=== PATIENT | male | born 1960 | race Two or more races ===

== ENCOUNTER 2019-09-04 14:16 | Emergency (ER) | payer OTHER ==
[~2019-09-04] VITALS: Ht 172.7 cm; Wt 81.6 kg
[~2019-09-04 14:16] MED LIST: BENADRYL50 MG ORAL; FLONASE1 SPRAYS; LORATADINE10 M2 PO; NKM; RANITIDINE HCL150 MG ORAL; UNOBMED
[2019-09-04 14:30] VITALS: BP 135/85
--- NOTE | 2019-09-04 15:28 | Diagnostic Imaging Report ---
Indication: Pain, status post fall Technique: 3 views of the left knee Comparison: None Findings: No suprapatellar effusion. No acute fractures. No dislocations. The joint spaces are preserved Impression: Negative
--- NOTE | 2019-09-04 15:28 | Diagnostic Imaging Report ---
Indications: Pain status post fall Technique: Three views of the right knee Comparison: None Findings: No acute fractures. No dislocations. Joint spaces are preserved. No radiopaque foreign body. Normal mineralization. Impression: No acute process
--- NOTE | 2019-09-04 15:29 | Diagnostic Imaging Report ---
Indication: Right hand pain, status post fall Technique: 3 views hand Comparison: none Findings: No acute fractures. No dislocations. The joint spaces are preserved. Impression: Negative
[2019-09-04] MEDS ORDERED: Acetaminophen 500mg (ES) tab ORAL ONE (16:00)
--- NOTE | 2019-09-04 16:08 | Emergency Room Report ---
History of Present Illness General Chief Complaint: Multiple Trauma/Fall Source: Patient Present Illness HPI 59-year-old male presents to the emergency department complaining of 6 out of 10 in severity pain to the anterior knees bilaterally, pain and swelling to the right hand and tightness in his upper back and neck status post allegedly mechanical slip and fall down stairs 2 days ago. Patient estimates slipping down approximately 13 stairs. He is also reporting abrasions and multiple sites including his face as well as contusions of multiple sites. Patient states he is ambulatory on his own. He denies having a loss of consciousness. Patient denies headache, nausea, vomiting, blurry vision, or pain with movements of the eyes. He denies taking blood thinning medications. Denies bleeding at this time. He denies midline neck or back pain. He denies difficulty with speech or memory. Denies numbness tingling or loss of sensation or gross motor movements of the extremities, incontinence of bowel or bladder. Denies CP, Palpitations, LOC, AMS, dizziness, Changes in Vision, weakness or a sudden severe headache. Allergies: Coded Allergies: AMOXICILLIN (Verified Allergy, Unknown, HIVES, 10/31/11) PENICILLIN (Verified Allergy, Unknown, 09/07/15) Patient History Past Medical History: see triage record, DM Past Surgical History: none Pertinent Family History: none Immunizations: UTD Reviewed Nursing Documentation: PMH: Agreed; PSxH: Agreed Nursing Documentation-PMH Past Medical History: No History, Except For Hx Hypertension: Yes Hx Diabetes: Yes Review of Systems All Other Systems: negative except mentioned in HPI Physical Exam Vital Signs Date Time Temp Pulse Resp B/P (MAP) Pulse Ox O2 Delivery O2 Flow Rate FiO2 09/04/19 14:25 98.8 88 16 135/85 (102) 95 Room Air Sp02 EP Interpretation: reviewed, normal General Appearance: no apparent distress, alert, GCS 15, non-toxic Head: normocephalic, other - on the left forearm and the right side of face: cheek, right eyebrow, and forehead. Contusions to the right side of the face/ eyebrow. Eyes: bilateral eye normal inspection, bilateral eye PERRL, bilateral eye EOMI ENT: hearing grossly normal, normal voice Neck: full range of motion, no bony tend, tender lateral Respiratory: chest non-tender, lungs clear, normal breath sounds, speaking full sentences Cardiovascular #1: regular rate, rhythm Gastrointestinal: non tender, soft Musculoskeletal: back normal, normal range of motion, non-tender, tender - Right side of his face/ cheek, eyebrow and forehead, right palm, and anterior knees bilaterally. no increased laxity of the knees. no obivous deformities, swelling - right side of the face, and the anterior aspect of the left knee. , other - compensatory gait favoring the left knee without assistance. Neurologic: alert, motor strength/tone normal, oriented x3, sensory intact, responsive, speech normal, normal inspection, other - able to answer questions appropriately with sufficient amount of detail without delay in response time or difficulty with word recall. Psychiatric: judgement/insight normal Skin: Ecchymosis/Bruising - right side of the face/ eyebrow, abrasion - abrasions: on the left forearm and the right side of face: cheek, right eyebrow , and forehead. Contusions on the right side of the face at the eyebrow, palmar aspect of the right hand and the anterior left knee Medical Decision Making PA Attestation Dr. Musa is my supervising Physician whom patient management has been discussed with. Diagnostic Impression: Primary Impression: Knee effusion, left Additional Impressions: Multiple contusions Facial abrasion Qualified Codes: S00.81XA - Abrasion of other part of head, initial encounter Facial contusion Qualified Codes: S00.83XA - Contusion of other part of head, initial encounter ER Course 59-year-old male presents to the emergency department complaining of 6 out of 10 in severity pain to the anterior knees bilaterally, pain and swelling to the right hand and tightness in his upper back and neck status post allegedly mechanical slip and fall down stairs 2 days ago. Patient estimates slipping down approximately 13 stairs. He is also reporting abrasions and multiple sites including his face as well as contusions of multiple sites. Patient states he is ambulatory on his own. He denies having a loss of consciousness. Patient denies headache, nausea, vomiting, blurry vision, or pain with movements of the eyes. He denies taking blood thinning medications. Denies bleeding at this time. He denies midline neck or back pain. He denies difficulty with speech or memory. Denies numbness tingling or loss of sensation or gross motor movements of the extremities, incontinence of bowel or bladder. Denies CP, Palpitations, LOC, AMS, dizziness, Changes in Vision, weakness or a sudden severe headache. Ddx considered but are not limited to Fracture, dislocation, contusion, Sprain/ Strain/Spasm, intracranial bleed, abrasions, lacerations or concussion just to name a few. Vital signs: are WNL, pt. is afebrile H&PE are most consistent with musculoskeletal injury will perform imaging to r/ o fractures/dislocations. abrasions: on the left forearm and the right side of face: cheek, right eyebrow , and forehead. Contusions on the right side of the face at the eyebrow, palmar aspect of the right hand and the anterior left knee. Swelling of the left knee. NO focal neurological Deficits, no Midline neck or back pain along spinous processes. FROM. ORDERS: - X-ray's - negative for fx, Dislocation, or significant soft tissue injury , per preliminary read in ED, and signed by BOBBY Sykes, my supervising physician has reviewed, and agrees with my interpretation. * Left knee effusion. ED INTERVENTIONS: - Tylenol 1G PO -Guru wrap applied to the left knee by civil engineering technician. Pt. remains neurovascularly intact. -Patient is provided with a cane and instructed on its use -I do not identify an emergent condition at this time. With current presentation , pt. is stable for close outpatient follow up and conservative treatment. D/ w pt. to return promptly to ED with worsening or new symptoms.- Pt. verbalizes' understanding and agreement with proposed treatment plan. DISCHARGE: At this time pt. is stable for d/c to home. Will provide printed patient care instructions, and any necessary prescriptions. Care plan and follow up instructions have been discussed with the patient prior to discharge. Other X-Ray Diagnostic Results Other X-Ray Diagnostic Results #1: X-Ray ordered: Right knee # of Views/Limited Vs Complete: 3 View Indication: Pain EP Interpretation: Yes BOBBY Xray: Interpretation reviewed, by supervising MD, and agrees with findings. Interpretation: no dislocation, no soft tissue swelling, no fractures Impression: No acute disease Electronically Signed by: Jovanna Sykes PA-C Other X-Ray Diagnostic Results #2: X-Ray ordered: Left knee # of Views/Limited Vs Complete: 3 View Indication: Pain EP Interpretation: Yes PA Xray: Interpretation reviewed, by supervising MD, and agrees with findings. Interpretation: no dislocation, no fractures, other - anterior effusion Impression: Other - effusion Electronically Signed by: Jovanna Sykes PA-C Other X-Ray Diagnostic Results #3: X-Ray ordered: Right Hand # of Views/Limited Vs Complete: 3 View Indication: Pain EP Interpretation: Yes PA Xray: Interpretation reviewed, by supervising MD, and agrees with findings. Interpretation: no dislocation, no soft tissue swelling, no fractures Impression: No acute disease Electronically Signed by: Jovanna Sykes PA-C Last Vital Signs Date Time Temp Pulse Resp B/P (MAP) Pulse Ox O2 Delivery O2 Flow Rate FiO2 09/04/19 14:25 98.8 88 16 135/85 (102) 95 Room Air Disposition: HOME, SELF-CARE Condition: Stable Scripts Methocarbamol* (ROBAXIN-750*) 750 Mg Tablet 750 MG PO QID, #28 TAB 0 Refills Prov: Jovanna Sykes 09/04/19 Allantoin/Onion/Peg/Water (MEDERMA GEL) 20 Gm Gel..gram. 1 APPLIC TP Q6HR, #20 GM Prov: Jovanna Sykes 09/04/19 Bacitracin/Polymyxin B Sulfate (BACITRACIN-POLYMYXIN OINTMENT) 28.35 Gm Oint...g. 1 APPLIC TP BID, #28.3 GM Prov: Jovanna Sykes 09/04/19 Acetaminophen* (TYLENOL EXTRA STRENGTH*) 500 Mg Tablet 500 MG ORAL Q6H, #30 TAB 0 Refills Prov: Jovanna Sykes 09/04/19 Patient Instructions: Abrasion, [id number], Contusion, [id number], Facial or Scalp Contusion, [id number] Additional Instructions: Take medications as directed. --Do not drink alcohol, drive, or operate heavy machinery while taking Robaxin as this may cause drowsiness. Follow up with a Primary Care Provider in 3-5 days, even if your symptoms have resolved. --Please review list of primary care clinics, if you do not already have a primary care provider Return sooner to ED if new symptoms occur, or current symptoms become worse. - Please note that this Emergency Department Report was dictated using [employer] technology software, occasionally this can lead to erroneous entry secondary to interpretation by the dictation equipment. Jovanna Sykes Sep 04, 2019 16:08
[2019-09-04] MEDS ORDERED: ROBAXIN-750750 MG PO (16:11)
[2019-09-04] MEDS ORDERED: BACITRACIN-P28.35 GM TP (16:11)
[2019-09-04] MEDS ORDERED: TYLENOL EXTRA500 MG ORAL (16:11)
[2019-09-04] MEDS ORDERED: MEDERMA GEL20 GM TP (16:11)
[2019-09-04 16:58] VITALS: BP 130/85
== END 2019-09-04 16:58 | disposition home or self-care (01) ==
LOC: EMR 16:08
DX: M25.462 Effusion, left knee (principal); S00.81XA Abrasion of other part of head, initial encounter; S00.83XA Contusion of other part of head, initial encounter; S50.812A Abrasion of left forearm, initial encounter; S00.211A Abrasion of right eyelid and periocular area, initial encounter; S60.221A Contusion of right hand, initial encounter; S80.02XA Contusion of left knee, initial encounter; S00.11XA Contusion of right eyelid and periocular area, initial encounter; E11.9 Type 2 diabetes mellitus without complications; I10 Essential (primary) hypertension; W10.9XXA Fall (on) (from) unspecified stairs and steps, initial encounter; Y93.9 Activity, unspecified; Y92.9 Unspecified place or not applicable; Z88.1 Allergy status to other antibiotic agents; Z88.0 Allergy status to penicillin
CPT/HCPCS: 73130; 73562; Z7502; 99284